=== PATIENT | male | born 1955 | race Caucasian/White ===

== ENCOUNTER → 2017-03-06 | Outpatient (CLI) | payer OTHER ==
[~2017-03-06] MED LIST: ASCO-201 PO; ASPI-1471 PO; BUPR-472 PO; BUPXL150 PO; CALC500T42 PO; CHOL100094 PO; CIPR-214 PO; DOC100 PO; FISH OIL1 CAP PO; HCTZ25 PO; HYDR-2966 PO; HYDR-3250 PO; LEVO750T25 PO; LIS20 PO; LISI-374 PO; LISI20TA29 PO; LUTE20CA11 PO; LUTE20TA PO; METO25TA23 PO; METO50TA19 PO; MULT-977 PO; NIFE-15 PO; OMEG-55 PO; PROM12.546 PO; RANI75TA5 PO; SIMV10TA98 PO; [UNRECOGNIZED DRUG - CODE] PO
== END ==
LOC: LAB 09:06
PROVIDERS: ATTEND Internal Medicine
DX: N41.0 Acute prostatitis (principal)
CPT/HCPCS: 81001; 87088

== ENCOUNTER → 2017-11-27 | Outpatient (CLI) | payer OTHER ==
[~2017-11-27] MED LIST changes: +CYCL10TA29 PO
== END ==
LOC: LAB 08:41
PROVIDERS: ATTEND Internal Medicine Nephrology
DX: I10 Essential (primary) hypertension (principal); R79.89 Other specified abnormal findings of blood chemistry
CPT/HCPCS: 36415; 81001; 82040; 82088; 82247; 82310; 82374; 82435; 82565; 82570; 82947; 84075; 84132; 84155; 84156; 84244; 84295; 84450; 84460; 84520; 85027

== ENCOUNTER → 2017-12-27 | Outpatient (CLI) | payer OTHER ==
[~2017-12-27] MED LIST changes: +IOPAMIDOL 76% 75 ML INFUS BTL 75 ML ONE; +NS(*) 0.9% 50 ML BAG 50 ML ONE
--- NOTE | 2017-12-27 09:45 | RADIOLOGY IMAGING REPORT ---
FACILITY: [facility] - [place] PATIENT NAME: Donald Kennedy : 1955 MR: [id number] V: [id number] EXAM DATE: ORDERING PHYSICIAN: MICHELA PENNY TECHNOLOGIST: Location: [facility] [place] Patient: Donald Kennedy : 1955 Visit/Account:[id number] Date of Sevice: 12/27/2017 CTA ABDOMEN W WO CONTRAST Provided history: Essential hypertension. Hyperlipidemia. Elevated creatinine. Additional pertinent history: none TECHNIQUE: Bolus thin section axial scans were obtained during maximal arterial opacification centered at the le nagi of the renal arteries. Reconstruction of the source data set includes multiplanar 2D in the sagit soto and coronal planes, and 3D coronal thin slab MIP series. Audio Production Engineer images have been stored o n PACS. Contrast: 75 ml Isovue [id number] One of the following dose optimization techniques was utilized in the performance of this exam: Autom ated exposure control; adjustment of the mA and/or kV according to the patient's size; or use of an i terative reconstruction technique. Specific details can be referenced in the facility's radiology C T exam operational policy. COMPARISON STUDIES: CT 08/02/15 FINDINGS: Angiographic findings: Right renal artery: Calcified plaque at the upper margin of the ostium of the right main renal artery does not cause measurable stenosis of the vessel. Rest of the main segment and segmental branches r eveal no focal stenosis. There is a tiny accessory branch arising just beyond the ostium feeds the u pper pole. No obvious stenosis of this branch.. Left renal artery: Nonstenotic calcified plaque at the margins of the ostium. The rest of the main s egment and the segmental branches reveal no focal stenosis. No accessory branches.. Abdominal aorta: Mild a tortuous with mild calcified plaque of the lower abdominal aorta. No aneurys m or dissection. Bifurcation normal.. Other branch vessels: Negative. Additional non-angiographic findings: Lower chest: Negative Liver/biliary: Negative Pancreas: Negative Spleen: Negative Adrenal glands: Negative Kidneys / ureters / / retroperitoneum: Negative Bowel/peritoneum/mesenteries: Mild diverticulosis of the lower descending colon. No evidence of dive rticulitis. Mild diffuse retention of stool in the colon. Normal appendix. Other Vessels: negative Body wall: Small fat-containing noninflamed subumbilical hernia. Lymph nodes: negative Bones: Stable degenerative changes lumbar spine. IMPRESSION: 1. Calcified plaque of the abdominal aorta without significant renal arterial stenosis. 2. Additional minor chronic changes, stable from prior CT. Report Dictated By: Donald Hale MD at 12/27/2017 9:30 AM Report E-Signed By: Donald Hale MD at 12/27/2017 9:41 AM WSN:[id number]
== END ==
LOC: CT 00:20
PROVIDERS: ATTEND Internal Medicine Nephrology
DX: I70.0 Atherosclerosis of aorta (principal); I12.9 Hypertensive chronic kidney disease with stage 1 through stage 4 chronic kidney disease, or unspecified chronic kidney disease; N18.9 Chronic kidney disease, unspecified
CPT/HCPCS: 74175; J7050; Q9967